=== PATIENT | female | born 1950 | race Caucasian/White ===

== ENCOUNTER 2019-05-02 16:00 | Outpatient (RCR) | payer OTHER, SELFPAY ==
--- NOTE | 2019-02-14 16:00 | PT.OPPOC ---
Current Diagnoses Stress incontinence (female) (male) (02/21/19) Urge incontinence (02/21/19) Visit Care Team Role Provider Type Abimael Shahid MD Primary Care Provider Non-Staff Specialty: Medical Address: [facility] [address], [place], [address] Email: Arjun Herrera MD Attending Provider Physician Specialty: PHYSICIAN REPRESENTATIVE Address: [address] [place] [address] [address], [place], [address] Email: [email or web address] Plan Of Care PT-OP-T Assessment and Plan Start: 02/14/19 12:59 Freq: Status: Active Protocol: Document 02/14/19 15:33 [facility] (Rec: 02/19/19 17:14 [facility] [email or web address]) Physical Therapy Assessment Rehab Potential Rehabilitation Potential Excellent Evaluation Complexity Number of Personal Factors/Comorbidities 0 Number of Body Systems Impaired 1-2 Clinical Presentation at Evaluation Stable Impairments Impairments Activity Tolerance,Strength, Tone Other Impairments urinary urge and stress incontinence limiting recreational activites and activites that require exertion Goals Four Impairment urinary leakage throughout the day, having to change her pad 2 xms Interventional Radiology Rn Goal (LTG) Eloise reports a overall reduction in urinary stress and urge incontinence and is down from 2 pads per day to 1 or less. LTG Duration 8 weeks Three Impairment Urinary urgency and frequency of urination Short Term Goal (STG) Eloise is educated in the urge deference technique and bladder retraining to begin calming down the urgency to void so frequently STG Duration 5 weeks Care Home Goal (LTG) Eloise is able to change her voiding habits from voiding every hour or more to every 2 hours during the day LTG Duration 8 weeks Two Impairment Decreased endurance of the pelvic floor muscles < 5 second hold Short Term Goal (STG) Eloise demonstrates improve pelvic floor endurance and is able to sustain a pelvic floor contraction x 10 seconds in supine STG Duration 4 weeks Interventional Radiology Rn Goal (LTG) Eloise is able to sustain a pelvic floor contraction in standing x 10 seconds One Impairment pelvic floor weakness with MMT 2/5 anterior and lateral awad,3/5 posterior Short Term Goal (STG) Eloise is able to demonstrated improved recruitment of her pelvic floor and she is able to feel a anterior pelvic floor contraction. STG Duration 4 weeks Care Home Goal (LTG) Improve overall pelvic floor strength to 3/5 or better on MMT to provide improved support for the pelvic organs and urethra. Assessment Summary Assessment Eloise presents to physical therapy today with signs and symptoms of both urinary stress and urge incontinence that has progressed over the past 5 years. She is wearing a pessary but still is noting pelvic pressure and heaviness. When reviewing her dietary irritants she does intake a good amount of caffeine during the day including 3 cups of coffee in the am. This may be contributing to her urgency. She reports voiding at least every hour and at times more often than that. She leaks many times per day and is going through 2 maxi pads per day. With examination she test 2/5 for MMT of the anterior and lateral awad of the levator ani and 3/5 MMT for the posterior wall. She has very limited pelvic floor endurance. She also presents with weakness of the Transverse abdominal musculature and hips. Eloise is a good candidate for PT. Treatment will include bladder retraining, pelvic floor neuro facilitation, endurance training, avoiding bladder irritants, and core strengthening exercises. Physical Therapy Plan Frequency and Duration Frequency of Treatment 1x/Week Duration of Treatment 8 Plan of Care Start Date 02/14/19 Plan of Care End Date 04/11/19 Therapeutic Interventions Therapeutic Interventions Home Exercise Program, Neuromuscular Re-education, Patient/Caregiver Education, Self-Care/Home Management, Therapeutic Exercises Next Visit Focus/Plan Next Note Type Treatment Note Next Visit Plan EMG biofeedback for pelvic floor neuro re-ed, begin urge deference technique Plan of Care Dates Plan of Care Start Date 02/14/19 Plan of Care End Date 04/11/19
--- NOTE | 2019-02-14 17:15 | PT.OIE ---
Current Diagnoses Stress incontinence (female) (male) (02/14/19) Urge incontinence (02/14/19) Past Medical History (Last Updated 01/01/19 @ 10:30 by Arjun Herrera MD) Stress incontinence due to pelvic organ prolapse (Acute) Urge incontinence (Acute) Visit Care Team Role Provider Type Abimael Shahid MD Primary Care Provider Non-Staff Specialty: Medical Address: [address] [place], [place] [address], [address] Email: Arjun Herrera MD Attending Provider Physician Specialty: MENTAL TELEPATHIST Address: [address] [place] [address] [address], [place], [address] Email: [email or web address] Physical Therapy Initial Evaluation PT-OP-A Visit Information Start: 02/14/19 12:59 Freq: Status: Active Protocol: Document 02/14/19 15:22 [facility] (Rec: 02/14/19 15:35 [facility] [id number]) Out-Patient Physical Therapy Visit Information Visit Information Visit Type Initial Evaluation Visit Start Time 15:15 Visit Stop Time 16:00 Total Visit Minutes 45 Visit Number 1 Evaluation Information Evaluation Date 02/14/19 PT-OP-B Current Condition Start: 02/14/19 12:59 Freq: Status: Active Protocol: Document 02/14/19 15:22 [facility] (Rec: 02/14/19 15:35 [facility] [id number]) Current Condition History of Current Condition Onset Date many years ago Current Complaints stress and urge incontinence History of Current Condition Eloise Celestin) reports that for quite a few years she has been experiencing leaking with cough and sneeze. Approximately 5 years ago symptoms began to get worse. A few years ago she got a pessary due to increased pressure and no control. She feels like this helped with pressure and heavyness however she continues to experience leakage. Leaking occurs with coughing and sneezing or any exertion like walking or house work or gardening. Sometimes she will have the feeling she needs to go but she wont be able to void. Eloise has a past medical history of 2 vaginal deliveries, 1 c- section delivery, type II diabetes, oseopenia, osteoporosis, taking baclofen for myoclonus Treatment Goals Patient/Caregiver Goals Goal include elimitinating both urinary urge and stress incontinence and reducing pelvic pressure and heaviness Prior Functional Status Baseline Function- ADL's Independent Baseline Function- Mobility Independent Baseline Function- Recreation/Hobbies limited with recreational activies due to leakage and pelvic pressure Current Functional Impairments (Reported) Functional Limitations- Recreation/ limited with activities that Hobbies include exercise and gardening that induce leaking PT-OP-I Pelvic Floor Start: 02/14/19 12:59 Freq: Status: Active Protocol: Document 02/14/19 15:33 [facility] (Rec: 02/19/19 17:14 [facility] [email or web address]) Pelvic Floor Assessment Urine Pelvic Floor Surgery No Urinary Symptoms Urge Sensation,Prolapse Other Urinary Symptoms urinary frequency Leakage Size Medium Leakage Cause Exercise,Lifting,Sneeze,Urge Leaks Per Day many times per day Voiding Frequency every hour Nocturia 1 Pads Used In 24 Hours 2 Urine Pad Type Maxi Pad Pelvic Clock Pelvic Clock 12-3 Atrophy Pelvic Clock 3-6 Guarding Pelvic Clock 6-9 Guarding Pelvic Clock Other guarding on B lateral awad of the levator ani SEMG (uV) 10 Second Contraction 4.9 Recruitment Pattern Poor/Slow Relaxation Fair Holding Poor/Slow Stability of Hold Poor/Slow SEMG Stability of Rest Good Contraction Ability Voluntary Contraction Weak Voluntary Relaxation Weak Manual Muscle Testing Left 2 Manual Muscle Testing Right 2 Manual Muscle Testing Anterior 2 Manual Muscle Testing Posterior 3 Muscle Endurance (Seconds) 5 PT-OP-Q Treatments Start: 02/14/19 12:59 Freq: Status: Active Protocol: Document 02/14/19 15:33 [facility] (Rec: 02/19/19 17:14 [facility] [email or web address]) Neuro Re-Education Treatment Other Activities 1 Details pelvic floor long holds with EMG biofeedback Reps/Duration 10 reps Comments 10 second holds x 10 second relaxation PT-OP-T Assessment and Plan Start: 02/14/19 12:59 Freq: Status: Active Protocol: Document 02/14/19 15:33 [facility] (Rec: 02/19/19 17:14 [facility] [email or web address]) Physical Therapy Assessment Rehab Potential Rehabilitation Potential Excellent Evaluation Complexity Number of Personal Factors/Comorbidities 0 Number of Body Systems Impaired 1-2 Clinical Presentation at Evaluation Stable Impairments Impairments Activity Tolerance,Strength, Tone Other Impairments urinary urge and stress incontinence limiting recreational activities and activities that require exertion Goals Four Impairment urinary leakage throughout the day, having to change her pad 2 xms Mcfp Goal (LTG) Eloise reports a overall reduction in urinary stress and urge incontinence and is down from 2 pads per day to 1 or less. LTG Duration 8 weeks Three Impairment Urinary urgency and frequency of urination Short Term Goal (STG) Eloise is educated in the urge deference technique and bladder retraining to begin calming down the urgency to void so frequently STG Duration 5 weeks Channel Supervisor Goal (LTG) Eloise is able to change her voiding habits from voiding every hour or more to every 2 hours during the day LTG Duration 8 weeks Two Impairment Decreased endurance of the pelvic floor muscles < 5 second hold Short Term Goal (STG) Eloise demonstrates improve pelvic floor endurance and is able to sustain a pelvic floor contraction x 10 seconds in supine STG Duration 4 weeks Mcfp Goal (LTG) Eloise is able to sustain a pelvic floor contraction in standing x 10 seconds One Impairment pelvic floor weakness with MMT 2/5 anterior and lateral awad,3/5 posterior Short Term Goal (STG) Eloise is able to demonstrated improved recruitment of her pelvic floor and she is able to feel a anterior pelvic floor contraction. STG Duration 4 weeks Mcfp Goal (LTG) Improve overall pelvic floor strength to 3/5 or better on MMT to provide improved support for the pelvic organs and urethra. Assessment Summary Assessment Eloise presents to physical therapy today with signs and symptoms of both urinary stress and urge incontinence that has progressed over the past 5 years. She is wearing a pessary but still is noting pelvic pressure and heaviness. When reviewing her dietary irritants she does intake a good amount of caffeine during the day including 3 cups of coffee in the am. This may be contributing to her urgency. She reports voiding at least every hour and at times more often than that. She leaks many times per day and is going through 2 maxi pads per day. With examination she test 2/5 for MMT of the anterior and lateral awad of the levator ani and 3/5 MMT for the posterior wall. She has very limited pelvic floor endurance. She also presents with weakness of the Transverse abdominal musculature and hips. Eloise is a good candidate for PT. Treatment will include bladder retraining, pelvic floor neuro facilitation, endurance training, avoiding bladder irritants, and core strengthening exercises. Physical Therapy Plan Frequency and Duration Frequency of Treatment 1x/Week Duration of Treatment 8 Plan of Care Start Date 02/14/19 Plan of Care End Date 04/11/19 Therapeutic Interventions Therapeutic Interventions Home Exercise Program, Neuromuscular Re-education, Patient/Caregiver Education, Self-Care/Home Management, Therapeutic Exercises Next Visit Focus/Plan Next Note Type Treatment Note Next Visit Plan EMG biofeedback for pelvic floor neuro re-ed, begin urge deference technique
--- NOTE | 2019-02-21 11:36 | PT.OTN ---
Current Diagnoses Stress incontinence (female) (male) (02/21/19) Urge incontinence (02/21/19) Physical Therapy Treatment Note PT-OP-A Visit Information Start: 02/14/19 12:59 Freq: Status: Active Protocol: Document 02/21/19 11:31 [facility] (Rec: 02/21/19 11:34 [facility] [email or web address]) Out-Patient Physical Therapy Visit Information Visit Information Visit Type Treatment Note Visit Start Time 09:00 Visit Stop Time 09:45 Total Visit Minutes 45 Visit Number 2 PT-OP-B Current Condition Start: 02/14/19 12:59 Freq: Status: Active Protocol: Document 02/14/19 15:22 [facility] (Rec: 02/14/19 15:35 [facility] [id number]) Current Condition History of Current Condition Onset Date many years ago Current Complaints stress and urge incontinence History of Current Condition Eloise Celestin) reports that for quite a few years she has been experiencing leaking with cough and sneeze. Approximately 5 years ago symptoms began to get worse. A few years ago she got a pessary due to increased pressure and no control. She feels like this helped with pressure and heavyness however she continues to experience leakage. Leaking occurs with coughing and sneezing or any exertion like walking or house work or gardening. Sometimes she will have the feeling she needs to go but she wont be able to void. Eloise has a past medical history of 2 vaginal deliveries, 1 c- section delivery, type II diabetes, oseopenia, osteoporosis, taking baclofen for myoclonus Treatment Goals Patient/Caregiver Goals Goal include elimitinating both urinary urge and stress incontinence and reducing pelvic pressure and heaviness Prior Functional Status Baseline Function- ADL's Independent Baseline Function- Mobility Independent Baseline Function- Recreation/Hobbies limited with recreational activies due to leakage and pelvic pressure Current Functional Impairments (Reported) Functional Limitations- Recreation/ limited with activities that Hobbies include exercise and gardening that induce leaking PT-OP-C Subjective Start: 02/14/19 12:59 Freq: Status: Active Protocol: Document 02/21/19 11:31 [facility] (Rec: 02/21/19 11:34 [facility] [email or web address]) OP-PT Subjective Patient Comments Patient Comments pt notes she has been working on her exercises but it has been difficult for her to find her pelvic floor PT-OP-I Pelvic Floor Start: 02/14/19 12:59 Freq: Status: Active Protocol: Document 02/14/19 15:33 [facility] (Rec: 02/19/19 17:14 [facility] [email or web address]) Pelvic Floor Assessment Urine Pelvic Floor Surgery No Urinary Symptoms Urge Sensation,Prolapse Other Urinary Symptoms urinary frequency Leakage Size Medium Leakage Cause Exercise,Lifting,Sneeze,Urge Leaks Per Day many times per day Voiding Frequency every hour Nocturia 1 Pads Used In 24 Hours 2 Urine Pad Type Maxi Pad Pelvic Clock Pelvic Clock 12-3 Atrophy Pelvic Clock 3-6 Guarding Pelvic Clock 6-9 Guarding Pelvic Clock Other guarding on B lateral awad of the levator ani SEMG (uV) 10 Second Contraction 4.9 Recruitment Pattern Poor/Slow Relaxation Fair Holding Poor/Slow Stability of Hold Poor/Slow SEMG Stability of Rest Good Contraction Ability Voluntary Contraction Weak Voluntary Relaxation Weak Manual Muscle Testing Left 2 Manual Muscle Testing Right 2 Manual Muscle Testing Anterior 2 Manual Muscle Testing Posterior 3 Muscle Endurance (Seconds) 5 PT-OP-Q Treatments Start: 02/14/19 12:59 Freq: Status: Active Protocol: Document 02/21/19 11:34 [facility] (Rec: 02/21/19 11:36 [facility] [email or web address]) Therapeutic Exercises Supine Exercises 2 Supine Exercise Name isometric ball squeeze with pelvic floor contraction Side bilateral Reps/Minutes x 10 1 Supine Exercise Name diaphragmatic breathing Side bilateral Comments x 5 minutes , inhale x 4 counts exhale x 4 counts Other Exercises 2 Other Exercise Name sidelying TA 1 Other Exercise Name quadruped TA facilitation Reps/Minutes 10 reps x 10 second hold Neuro Re-Education Treatment Other Activities 2 Details pelvic floor quick contractions Comments 10 reps x 2 sec on/off 1 Details pelvic floor long holds with EMG biofeedback Reps/Duration 10 reps Comments 10 second holds x 10 second relaxation PT-OP-T Assessment and Plan Start: 02/14/19 12:59 Freq: Status: Active Protocol: Document 02/21/19 11:31 [facility] (Rec: 02/21/19 11:34 [facility] [email or web address]) Physical Therapy Assessment Assessment Summary Assessment added in urge deferenece techniaue today, worked on diaphragmatic breathing which is very difficult for Eloise to do. Worked on transverse abdominal facilitation in quadraped, sidelying and supine, added in quick contractions to help with urge deference technique. Physical Therapy Plan Frequency and Duration Frequency of Treatment 1x/Week Duration of Treatment 8 Plan of Care Start Date 02/14/19 Plan of Care End Date 04/11/19 Next Visit Focus/Plan Next Note Type Treatment Note Next Visit Plan review all exercises next visit as it will be 2 weeks inbetween visits.
--- NOTE | 2019-03-21 14:57 | PT.OTN ---
Current Diagnoses Stress incontinence (female) (male) (03/21/19) Urge incontinence (03/21/19) Physical Therapy Treatment Note PT-OP-A Visit Information Start: 02/14/19 12:59 Freq: Status: Active Protocol: Document 03/21/19 14:51 [facility] (Rec: 03/21/19 14:57 [facility] [email or web address]) Out-Patient Physical Therapy Visit Information Visit Information Visit Type Treatment Note Visit Start Time 13:45 Visit Stop Time 14:30 Total Visit Minutes 45 Visit Number 3 PT-OP-B Current Condition Start: 02/14/19 12:59 Freq: Status: Active Protocol: Document 02/14/19 15:22 [facility] (Rec: 02/14/19 15:35 [facility] [id number]) Current Condition History of Current Condition Onset Date many years ago Current Complaints stress and urge incontinence History of Current Condition Eloise Celestin) reports that for quite a few years she has been experiencing leaking with cough and sneeze. Approximately 5 years ago symptoms began to get worse. A few years ago she got a pessary due to increased pressure and no control. She feels like this helped with pressure and heavyness however she continues to experience leakage. Leaking occurs with coughing and sneezing or any exertion like walking or house work or gardening. Sometimes she will have the feeling she needs to go but she wont be able to void. Eloise has a past medical history of 2 vaginal deliveries, 1 c- section delivery, type II diabetes, oseopenia, osteoporosis, taking baclofen for myoclonus Treatment Goals Patient/Caregiver Goals Goal include elimitinating both urinary urge and stress incontinence and reducing pelvic pressure and heaviness Prior Functional Status Baseline Function- ADL's Independent Baseline Function- Mobility Independent Baseline Function- Recreation/Hobbies limited with recreational activies due to leakage and pelvic pressure Current Functional Impairments (Reported) Functional Limitations- Recreation/ limited with activities that Hobbies include exercise and gardening that induce leaking PT-OP-C Subjective Start: 02/14/19 12:59 Freq: Status: Active Protocol: Document 03/21/19 13:52 [facility] (Rec: 03/21/19 13:54 [facility] [id number]) OP-PT Subjective Patient Comments Patient Comments pt reports she hasn't been very consistent with her exercises. Patient Reported Progress Same PT-OP-I Pelvic Floor Start: 02/14/19 12:59 Freq: Status: Active Protocol: Document 02/14/19 15:33 [facility] (Rec: 02/19/19 17:14 [facility] [email or web address]) Pelvic Floor Assessment Urine Pelvic Floor Surgery No Urinary Symptoms Urge Sensation,Prolapse Other Urinary Symptoms urinary frequency Leakage Size Medium Leakage Cause Exercise,Lifting,Sneeze,Urge Leaks Per Day many times per day Voiding Frequency every hour Nocturia 1 Pads Used In 24 Hours 2 Urine Pad Type Maxi Pad Pelvic Clock Pelvic Clock 12-3 Atrophy Pelvic Clock 3-6 Guarding Pelvic Clock 6-9 Guarding Pelvic Clock Other guarding on B lateral awad of the levator ani SEMG (uV) 10 Second Contraction 4.9 Recruitment Pattern Poor/Slow Relaxation Fair Holding Poor/Slow Stability of Hold Poor/Slow SEMG Stability of Rest Good Contraction Ability Voluntary Contraction Weak Voluntary Relaxation Weak Manual Muscle Testing Left 2 Manual Muscle Testing Right 2 Manual Muscle Testing Anterior 2 Manual Muscle Testing Posterior 3 Muscle Endurance (Seconds) 5 PT-OP-Q Treatments Start: 02/14/19 12:59 Freq: Status: Active Protocol: Document 03/21/19 14:51 [facility] (Rec: 03/21/19 14:57 [facility] [email or web address]) Therapeutic Exercises Supine Exercises 5 Supine Exercise Name quick flicks Reps/Minutes 2 x 10 reps 4 Supine Exercise Name pelvic floor long holds Reps/Minutes 2 x 10 reps 3 Supine Exercise Name roll outs with theraband Reps/Minutes 2 x 10 reps 2 Supine Exercise Name isometric ball squeeze with pelvic floor contraction Side bilateral Reps/Minutes x 10 1 Supine Exercise Name diaphragmatic breathing Side bilateral Comments x 5 minutes , inhale x 4 counts exhale x 4 counts Self-Care/Home Management Treatment Education Patient Education Home Exercise Program Other Education urge deference technique and bladder retraining taught to Erika today PT-OP-T Assessment and Plan Start: 02/14/19 12:59 Freq: Status: Active Protocol: Document 03/21/19 14:51 [facility] (Rec: 03/21/19 14:57 [facility] [email or web address]) Physical Therapy Assessment Assessment Summary Assessment endurance still really difficult but holding at a low level so I increased her to 10 second hold time for home. Added in roll outs and quick contractions to her home program Physical Therapy Plan Frequency and Duration Frequency of Treatment 1x/Week Duration of Treatment 8 Plan of Care Start Date 02/14/19 Plan of Care End Date 04/11/19 Next Visit Focus/Plan Next Note Type Treatment Note Next Visit Plan review all exercises next visit as it will be 2 weeks inbetween visits.
--- NOTE | 2019-04-11 17:27 | PT.OTN ---
Current Diagnoses Stress incontinence (female) (male) (04/11/19) Urge incontinence (04/11/19) Physical Therapy Treatment Note PT-OP-A Visit Information Start: 02/14/19 12:59 Freq: Status: Active Protocol: Document 04/11/19 17:09 [facility] (Rec: 04/11/19 17:26 COUNT INCLUDES THE [facility] [id number]) Out-Patient Physical Therapy Visit Information Visit Information Visit Type Treatment Note Visit Start Time 09:45 Visit Stop Time 10:30 Total Visit Minutes 45 Visit Number 4 PT-OP-B Current Condition Start: 02/14/19 12:59 Freq: Status: Active Protocol: Document 02/14/19 15:22 [facility] (Rec: 02/14/19 15:35 [facility] [id number]) Current Condition History of Current Condition Onset Date many years ago Current Complaints stress and urge incontinence History of Current Condition Eloise Celestin) reports that for quite a few years she has been experiencing leaking with cough and sneeze. Approximately 5 years ago symptoms began to get worse. A few years ago she got a pessary due to increased pressure and no control. She feels like this helped with pressure and heavyness however she continues to experience leakage. Leaking occurs with coughing and sneezing or any exertion like walking or house work or gardening. Sometimes she will have the feeling she needs to go but she wont be able to void. Eloise has a past medical history of 2 vaginal deliveries, 1 c- section delivery, type II diabetes, oseopenia, osteoporosis, taking baclofen for myoclonus Treatment Goals Patient/Caregiver Goals Goal include elimitinating both urinary urge and stress incontinence and reducing pelvic pressure and heaviness Prior Functional Status Baseline Function- ADL's Independent Baseline Function- Mobility Independent Baseline Function- Recreation/Hobbies limited with recreational activies due to leakage and pelvic pressure Current Functional Impairments (Reported) Functional Limitations- Recreation/ limited with activities that Hobbies include exercise and gardening that induce leaking PT-OP-C Subjective Start: 02/14/19 12:59 Freq: Status: Active Protocol: Document 04/11/19 17:09 [facility] (Rec: 04/11/19 17:26 COUNT INCLUDES THE [facility] [email or web address]) OP-PT Subjective Patient Comments Patient Comments pt states she is working at being more consistent with her exercises. She feels like she is getting little more control now. PT-OP-I Pelvic Floor Start: 02/14/19 12:59 Freq: Status: Active Protocol: Document 02/14/19 15:33 [facility] (Rec: 02/19/19 17:14 [facility] INCLUDES THE [facility] [email or web address]) Pelvic Floor Assessment Urine Pelvic Floor Surgery No Urinary Symptoms Urge Sensation,Prolapse Other Urinary Symptoms urinary frequency Leakage Size Medium Leakage Cause Exercise,Lifting,Sneeze,Urge Leaks Per Day many times per day Voiding Frequency every hour Nocturia 1 Pads Used In 24 Hours 2 Urine Pad Type Maxi Pad Pelvic Clock Pelvic Clock 12-3 Atrophy Pelvic Clock 3-6 Guarding Pelvic Clock 6-9 Guarding Pelvic Clock Other guarding on B lateral awad of the levator ani SEMG (uV) 10 Second Contraction 4.9 Recruitment Pattern Poor/Slow Relaxation Fair Holding Poor/Slow Stability of Hold Poor/Slow SEMG Stability of Rest Good Contraction Ability Voluntary Contraction Weak Voluntary Relaxation Weak Manual Muscle Testing Left 2 Manual Muscle Testing Right 2 Manual Muscle Testing Anterior 2 Manual Muscle Testing Posterior 3 Muscle Endurance (Seconds) 5 PT-OP-Q Treatments Start: 02/14/19 12:59 Freq: Status: Active Protocol: Document 04/11/19 17:09 [facility] INCLUDES THE [facility] (Rec: 04/11/19 17:26 COUNT INCLUDES THE [facility] [email or web address]) Therapeutic Exercises Supine Exercises 5 Supine Exercise Name quick flicks Reps/Minutes 2 x 10 reps 4 Supine Exercise Name pelvic floor long holds Reps/Minutes 2 x 10 reps 3 Supine Exercise Name roll outs with theraband Reps/Minutes 2 x 10 reps 2 Supine Exercise Name isometric ball squeeze with pelvic floor contraction Side bilateral Reps/Minutes x 10 1 Supine Exercise Name diaphragmatic breathing Side bilateral Comments x 5 minutes , inhale x 4 counts exhale x 4 counts Other Exercises sit-stand Other Exercise Name sit-stand with TA facilitation and pelvic floor facilitation Reps/Minutes 10 reps PT-OP-T Assessment and Plan Start: 02/14/19 12:59 Freq: Status: Active Protocol: Document 04/11/19 17:09 [facility] INCLUDES THE [facility] (Rec: 04/11/19 17:26 COUNT INCLUDES THE [facility] [email or web address]) Physical Therapy Assessment Goals Four Impairment urinary leakage throughout the day, having to change her pad 2 xms Shelter Goal (LTG) Eloise reports a overall reduction in urinary stress and urge incontinence and is down from 2 pads per day to 1 or less. GOOD PROGRESS LTG Duration 8 weeks Three Impairment Urinary urgency and frequency of urination Short Term Goal (STG) Eloise is educated in the urge deference technique and bladder retraining to begin calming down the urgency to void so frequently GOAL MET STG Duration 5 weeks Shelter Goal (LTG) Eloise is able to change her voiding habits from voiding every hour or more to every 2 hours during the day GOOD PROGRESS LTG Duration 8 weeks Two Impairment Decreased endurance of the pelvic floor muscles < 5 second hold Short Term Goal (STG) Eloise demonstrates improve pelvic floor endurance and is able to sustain a pelvic floor contraction x 10 seconds in supine GOAL NOT YET MET STG Duration 4 weeks Mutuel Department Manager Goal (LTG) Eloise is able to sustain a pelvic floor contraction in standing x 10 seconds One Impairment pelvic floor weakness with MMT 2/5 anterior and lateral awad,3/5 posterior Short Term Goal (STG) Eloise is able to demonstrated improved recruitment of her pelvic floor and she is able to feel a anterior pelvic floor contraction. GOOD PROGRESS STG Duration 4 weeks [employer] Department Manager Goal (LTG) Improve overall pelvic floor strength to 3/5 or better on MMT to provide improved support for the pelvic organs and urethra. Assessment Summary Assessment Eloise Diehl) Has been seen for a total of 4 visits in PT. She is reporting decreased waking up at night to void, she is feeling her pelvic floor muscles better now and is noting a small decrease in her leaking. She was doing better with pelvic floor isolation today and not using her gluteals for substitution. Endurance of the pelvic floor muscles is still a challange for her and I am working with her hip muscle strengthening as well to help improve endurance. Physical Therapy Plan Frequency and Duration Frequency of Treatment 1x/Week Duration of Treatment 8 Plan of Care Start Date 04/11/19 Plan of Care End Date 06/06/19 Therapeutic Interventions Therapeutic Interventions Home Exercise Program, Neuromuscular Re-education, Patient/Caregiver Education, Self-Care/Home Management, Therapeutic Exercises Next Visit Focus/Plan Next Note Type Treatment Note Next Visit Plan work on transverse abdominal recruitement in quadruped and with sit-stand, continue to progress endurance with pelvic cheyanne strengtheing
--- NOTE | 2019-04-11 17:27 | PT.OPPOC ---
Physical, Occupational & Speech Therapy At [facility] Current Diagnoses Stress incontinence (female) (male) (04/11/19) Urge incontinence (04/11/19) Visit Care Team Role Provider Type Abimael Shahid MD Primary Care Provider Non-Staff Specialty: Medical Address: [facility] [address], [place], [address] Email: Arjun Herrera MD Attending Provider Physician Specialty: DENTAL TECHNOLOGY ADVISOR Address: [address] [place] [address] [address], [place], [address] Email: [email or web address] Plan Of Care PT-OP-T Assessment and Plan Start: 02/14/19 12:59 Freq: Status: Active Protocol: Document 04/11/19 17:09 [facility] (Rec: 04/11/19 17:26 [facility] [email or web address]) Physical Therapy Assessment Goals Four Impairment urinary leakage throughout the day, having to change her pad 2 xms Desktop Specialist Goal (LTG) Eloise reports a overall reduction in urinary stress and urge incontinence and is down from 2 pads per day to 1 or less. GOOD PROGRESS LTG Duration 8 weeks Three Impairment Urinary urgency and frequency of urination Short Term Goal (STG) Eloise is educated in the urge deference technique and bladder retraining to begin calming down the urgency to void so frequently GOAL MET STG Duration 5 weeks Desktop Specialist Goal (LTG) Eloise is able to change her voiding habits from voiding every hour or more to every 2 hours during the day GOOD PROGRESS LTG Duration 8 weeks Two Impairment Decreased endurance of the pelvic floor muscles < 5 second hold Short Term Goal (STG) Eloise demonstrates improve pelvic floor endurance and is able to sustain a pelvic floor contraction x 10 seconds in supine GOAL NOT YET MET STG Duration 4 weeks Fdc Goal (LTG) Eloise is able to sustain a pelvic floor contraction in standing x 10 seconds One Impairment pelvic floor weakness with MMT 2/5 anterior and lateral awad,3/5 posterior Short Term Goal (STG) Eloise is able to demonstrated improved recruitment of her pelvic floor and she is able to feel a anterior pelvic floor contraction. GOOD PROGRESS STG Duration 4 weeks [facility]dc Goal (LTG) Improve overall pelvic floor strength to 3/5 or better on MMT to provide improved support for the pelvic organs and urethra. Assessment Summary Assessment Eloise Diehl) Has been seen for a total of 4 visits in PT. She is reporting decreased waking up at night to void, she is feeling her pelvic floor muscles better now and is noting a small decrease in her leaking. She was doing better with pelvic floor isolation today and not using her gluteals for substitution. Endurance of the pelvic floor muscles is still a challenge for her and I am working with her hip muscle strengthening as well to help improve endurance. She would benefit from continued PT Physical Therapy Plan Frequency and Duration Frequency of Treatment 1x/Week Duration of Treatment 8 Plan of Care Start Date 04/11/19 Plan of Care End Date 06/06/19 Therapeutic Interventions Therapeutic Interventions Home Exercise Program, Neuromuscular Re-education, Patient/Caregiver Education, Self-Care/Home Management, Therapeutic Exercises Next Visit Focus/Plan Next Note Type Treatment Note Next Visit Plan work on transverse abdominal recruitment in quadruped and with sit-stand, continue to progress endurance with pelvic floor strengthening Plan of Care Dates Plan of Care Start Date 04/11/19 Plan of Care End Date 06/06/19 Electronically Signed by: Trang Posada, PT 04/11/19 2812 Please Sign and Return: I have reviewed this Plan of Care and certify that the skilled therapy services above are required to meet the patient?s needs. Physician Signature Date Printed Name and Credentials Clinical Instructor Signature Printed Name and Credentials
--- NOTE | 2019-04-25 16:58 | PT.OTN ---
Current Diagnoses Stress incontinence (female) (male) (04/25/19) Urge incontinence (04/25/19) Physical Therapy Treatment Note PT-OP-A Visit Information Start: 02/14/19 12:59 Freq: Status: Active Protocol: Document 04/25/19 15:56 [facility] (Rec: 04/25/19 16:13 [facility] [email or web address]) Out-Patient Physical Therapy Visit Information Visit Information Visit Type Treatment Note Visit Start Time 16:00 Visit Stop Time 16:45 Total Visit Minutes 45 Visit Number 5 PT-OP-B Current Condition Start: 02/14/19 12:59 Freq: Status: Active Protocol: Document 02/14/19 15:22 [facility] (Rec: 02/14/19 15:35 [facility] [id number]) Current Condition History of Current Condition Onset Date many years ago Current Complaints stress and urge incontinence History of Current Condition Eloise Celestin) reports that for quite a few years she has been experiencing leaking with cough and sneeze. Approximately 5 years ago symptoms began to get worse. A few years ago she got a pessary due to increased pressure and no control. She feels like this helped with pressure and heavyness however she continues to experience leakage. Leaking occurs with coughing and sneezing or any exertion like walking or house work or gardening. Sometimes she will have the feeling she needs to go but she wont be able to void. Eloise has a past medical history of 2 vaginal deliveries, 1 c- section delivery, type II diabetes, oseopenia, osteoporosis, taking baclofen for myoclonus Treatment Goals Patient/Caregiver Goals Goal include elimitinating both urinary urge and stress incontinence and reducing pelvic pressure and heaviness Prior Functional Status Baseline Function- ADL's Independent Baseline Function- Mobility Independent Baseline Function- Recreation/Hobbies limited with recreational activies due to leakage and pelvic pressure Current Functional Impairments (Reported) Functional Limitations- Recreation/ limited with activities that Hobbies include exercise and gardening that induce leaking PT-OP-C Subjective Start: 02/14/19 12:59 Freq: Status: Active Protocol: Document 04/25/19 15:56 [facility] (Rec: 04/25/19 16:10 AMH [id number]) OP-PT Subjective Patient Comments Patient Comments Pt has been more consistant about her exercises, she hasn' t had nearly as much leakage. USes 2 pads per day Patient Reported Progress Improving PT-OP-I Pelvic Floor Start: 02/14/19 12:59 Freq: Status: Active Protocol: Document 02/14/19 15:33 [facility] (Rec: 02/19/19 17:14 [facility] [email or web address]) Pelvic Floor Assessment Urine Pelvic Floor Surgery No Urinary Symptoms Urge Sensation,Prolapse Other Urinary Symptoms urinary frequency Leakage Size Medium Leakage Cause Exercise,Lifting,Sneeze,Urge Leaks Per Day many times per day Voiding Frequency every hour Nocturia 1 Pads Used In 24 Hours 2 Urine Pad Type Maxi Pad Pelvic Clock Pelvic Clock 12-3 Atrophy Pelvic Clock 3-6 Guarding Pelvic Clock 6-9 Guarding Pelvic Clock Other guarding on B lateral awad of the levator ani SEMG (uV) 10 Second Contraction 4.9 Recruitment Pattern Poor/Slow Relaxation Fair Holding Poor/Slow Stability of Hold Poor/Slow SEMG Stability of Rest Good Contraction Ability Voluntary Contraction Weak Voluntary Relaxation Weak Manual Muscle Testing Left 2 Manual Muscle Testing Right 2 Manual Muscle Testing Anterior 2 Manual Muscle Testing Posterior 3 Muscle Endurance (Seconds) 5 PT-OP-Q Treatments Start: 02/14/19 12:59 Freq: Status: Active Protocol: Document 04/25/19 16:13 [facility] (Rec: 04/25/19 16:53 [facility] [email or web address]) Therapeutic Exercises Supine Exercises 6 Supine Exercise Name templates for coordination and eccentric control Reps/Minutes 5 min 5 Supine Exercise Name quick flicks Reps/Minutes 2 x 10 reps 4 Supine Exercise Name pelvic floor long holds Reps/Minutes 2 x 10 reps 3 Supine Exercise Name roll outs with theraband Reps/Minutes 2 x 10 reps 2 Supine Exercise Name isometric ball squeeze with pelvic floor contraction Side bilateral Reps/Minutes x 10 1 Supine Exercise Name diaphragmatic breathing Side bilateral Comments x 5 minutes , inhale x 4 counts exhale x 4 counts Other Exercises sit-stand Other Exercise Name sit-stand with TA facilitation and pelvic floor facilitation Reps/Minutes 10 reps 2 Other Exercise Name sidelying TA 1 Other Exercise Name quadruped TA facilitation Reps/Minutes 10 reps x 10 second hold PT-OP-T Assessment and Plan Start: 02/14/19 12:59 Freq: Status: Active Protocol: Document 04/25/19 16:53 [facility] (Rec: 04/25/19 16:56 [facility] [email or web address]) Physical Therapy Assessment Assessment Summary Assessment Max contraction has improved from 11.2 uv to 23.3 uv good increase in pelvic floor contraction intensity. Average has improved from 4.9 uv to 7.4 uv. Erika still has difficulty with full endurance of her pelvic floor but her symptoms have improved and she is doing well with her exercises. She has one visit left in PT and unless she feels she wants to do a recheck in one month then we will discontinue PT after next visit Physical Therapy Plan Frequency and Duration Frequency of Treatment 1x/Week Duration of Treatment 8 Plan of Care Start Date 04/11/19 Plan of Care End Date 06/06/19 Next Visit Focus/Plan Next Note Type Treatment Note Next Visit Plan Review TA stabilization in quadruped, review all established ther ex.
--- NOTE | 2019-05-02 17:23 | PT.OTN ---
Current Diagnoses Stress incontinence (female) (male) (05/02/19) Urge incontinence (05/02/19) Physical Therapy Treatment Note PT-OP-A Visit Information Start: 02/14/19 12:59 Freq: Status: Active Protocol: Document 05/02/19 17:21 [facility] (Rec: 05/02/19 17:23 [facility] [email or web address]) Out-Patient Physical Therapy Visit Information Visit Information Visit Type Treatment Note Visit Start Time 16:00 Visit Stop Time 16:45 Total Visit Minutes 45 Visit Number 6 PT-OP-B Current Condition Start: 02/14/19 12:59 Freq: Status: Active Protocol: Document 02/14/19 15:22 AM[facility] (Rec: 02/14/19 15:35 AMH [id number]) Current Condition History of Current Condition Onset Date many years ago Current Complaints stress and urge incontinence History of Current Condition Eloise Celestin) reports that for quite a few years she has been experiencing leaking with cough and sneeze. Approximately 5 years ago symptoms began to get worse. A few years ago she got a pessary due to increased pressure and no control. She feels like this helped with pressure and heavyness however she continues to experience leakage. Leaking occurs with coughing and sneezing or any exertion like walking or house work or gardening. Sometimes she will have the feeling she needs to go but she wont be able to void. Eloise has a past medical history of 2 vaginal deliveries, 1 c- section delivery, type II diabetes, oseopenia, osteoporosis, taking baclofen for myoclonus Treatment Goals Patient/Caregiver Goals Goal include elimitinating both urinary urge and stress incontinence and reducing pelvic pressure and heaviness Prior Functional Status Baseline Function- ADL's Independent Baseline Function- Mobility Independent Baseline Function- Recreation/Hobbies limited with recreational activies due to leakage and pelvic pressure Current Functional Impairments (Reported) Functional Limitations- Recreation/ limited with activities that Hobbies include exercise and gardening that induce leaking PT-OP-C Subjective Start: 02/14/19 12:59 Freq: Status: Active Protocol: Document 05/02/19 17:21 [facility] (Rec: 05/02/19 17:23 [facility] [email or web address]) OP-PT Subjective Patient Comments Patient Comments pt notes this has been a tiring week. She watched her 3 year old grand daughter in [place] this week. Hasn't done her exercises as much this week PT-OP-I Pelvic Floor Start: 02/14/19 12:59 Freq: Status: Active Protocol: Document 02/14/19 15:33 [facility] (Rec: 02/19/19 17:14 [facility] [email or web address]) Pelvic Floor Assessment Urine Pelvic Floor Surgery No Urinary Symptoms Urge Sensation,Prolapse Other Urinary Symptoms urinary frequency Leakage Size Medium Leakage Cause Exercise,Lifting,Sneeze,Urge Leaks Per Day many times per day Voiding Frequency every hour Nocturia 1 Pads Used In 24 Hours 2 Urine Pad Type Maxi Pad Pelvic Clock Pelvic Clock 12-3 Atrophy Pelvic Clock 3-6 Guarding Pelvic Clock 6-9 Guarding Pelvic Clock Other guarding on B lateral awad of the levator ani SEMG (uV) 10 Second Contraction 4.9 Recruitment Pattern Poor/Slow Relaxation Fair Holding Poor/Slow Stability of Hold Poor/Slow SEMG Stability of Rest Good Contraction Ability Voluntary Contraction Weak Voluntary Relaxation Weak Manual Muscle Testing Left 2 Manual Muscle Testing Right 2 Manual Muscle Testing Anterior 2 Manual Muscle Testing Posterior 3 Muscle Endurance (Seconds) 5 PT-OP-Q Treatments Start: 02/14/19 12:59 Freq: Status: Active Protocol: Document 05/02/19 17:21 [facility] (Rec: 05/02/19 17:23 [facility] [email or web address]) Therapeutic Exercises Supine Exercises 6 Supine Exercise Name templates for coordination and eccentric control Reps/Minutes 5 min 5 Supine Exercise Name quick flicks Reps/Minutes 2 x 10 reps 4 Supine Exercise Name pelvic floor long holds Reps/Minutes 2 x 10 reps 3 Supine Exercise Name roll outs with theraband Reps/Minutes 2 x 10 reps 2 Supine Exercise Name isometric ball squeeze with pelvic floor contraction Side bilateral Reps/Minutes x 10 1 Supine Exercise Name diaphragmatic breathing Side bilateral Comments x 5 minutes , inhale x 4 counts exhale x 4 counts Other Exercises sit-stand Other Exercise Name sit-stand with TA facilitation and pelvic floor facilitation Reps/Minutes 10 reps 2 Other Exercise Name sidelying TA 1 Other Exercise Name quadruped TA facilitation Reps/Minutes 10 reps x 10 second hold PT-OP-T Assessment and Plan Start: 02/14/19 12:59 Freq: Status: Active Protocol: Document 05/02/19 17:21 [facility] (Rec: 05/02/19 17:23 [facility] [email or web address]) Physical Therapy Assessment Assessment Summary Assessment Pt was fatigued today and pelvic floor average was much lower today due to fatigue. Pt will continue to work on the exercises on her own and recheck in 2 weeks Physical Therapy Plan Frequency and Duration Frequency of Treatment 1x/Week Duration of Treatment 8 Plan of Care Start Date 04/11/19 Plan of Care End Date 06/06/19 Therapeutic Interventions Therapeutic Interventions Home Exercise Program, Neuromuscular Re-education, Patient/Caregiver Education, Self-Care/Home Management, Therapeutic Exercises Next Visit Focus/Plan Next Note Type Treatment Note Next Visit Plan Review TA stabilization in quadruped, review all established ther ex.
--- NOTE | 2019-09-23 08:52 | PT.OPDS ---
Current Diagnoses Stress incontinence (female) (male) (05/02/19) Urge incontinence (05/02/19) Visit Care Team Role Provider Type Abimael Shahid MD Primary Care Provider Non-Staff Specialty: Medical Address: [facility] [address], [place], [address] Email: Arjun Herrera MD Attending Provider Physician Specialty: PRENATAL TEACHER Address: [address] [place] [address] [address], [place], [address] Email: [email or web address] Visit Number Visit Number 6 Discharge Summary PT-OP-B Current Condition Start: 02/14/19 12:59 Freq: Status: Active Protocol: Document 02/14/19 15:22 [facility] (Rec: 02/14/19 15:35 [facility] [id number]) Current Condition History of Current Condition Onset Date many years ago Current Complaints stress and urge incontinence History of Current Condition Eloise Celestin) reports that for quite a few years she has been experiencing leaking with cough and sneeze. Approximately 5 years ago symptoms began to get worse. A few years ago she got a pessary due to increased pressure and no control. She feels like this helped with pressure and heavyness however she continues to experience leakage. Leaking occurs with coughing and sneezing or any exertion like walking or house work or gardening. Sometimes she will have the feeling she needs to go but she wont be able to void. Eloise has a past medical history of 2 vaginal deliveries, 1 c- section delivery, type II diabetes, oseopenia, osteoporosis, taking baclofen for myoclonus Treatment Goals Patient/Caregiver Goals Goal include elimitinating both urinary urge and stress incontinence and reducing pelvic pressure and heaviness Prior Functional Status Baseline Function- ADL's Independent Baseline Function- Mobility Independent Baseline Function- Recreation/Hobbies limited with recreational activies due to leakage and pelvic pressure Current Functional Impairments (Reported) Functional Limitations- Recreation/ limited with activities that Hobbies include exercise and gardening that induce leaking PT-OP-C Subjective Start: 02/14/19 12:59 Freq: Status: Active Protocol: Document 05/02/19 17:21 [facility] (Rec: 05/02/19 17:23 [facility] [id number]) OP-PT Subjective Patient Comments Patient Comments pt notes this has been a tiring week. She watched her 3 year old grand daughter in [place] this week. Hasn't done her exercises as much this week PT-OP-I Pelvic Floor Start: 02/14/19 12:59 Freq: Status: Active Protocol: Document 02/14/19 15:33 [facility] (Rec: 02/19/19 17:14 [facility] [id number]) Pelvic Floor Assessment Urine Pelvic Floor Surgery No Urinary Symptoms Urge Sensation,Prolapse Other Urinary Symptoms urinary frequency Leakage Size Medium Leakage Cause Exercise,Lifting,Sneeze,Urge Leaks Per Day many times per day Voiding Frequency every hour Nocturia 1 Pads Used In 24 Hours 2 Urine Pad Type Maxi Pad Pelvic Clock Pelvic Clock 12-3 Atrophy Pelvic Clock 3-6 Guarding Pelvic Clock 6-9 Guarding Pelvic Clock Other guarding on B lateral awad of the levator ani SEMG (uV) 10 Second Contraction 4.9 Recruitment Pattern Poor/Slow Relaxation Fair Holding Poor/Slow Stability of Hold Poor/Slow SEMG Stability of Rest Good Contraction Ability Voluntary Contraction Weak Voluntary Relaxation Weak Manual Muscle Testing Left 2 Manual Muscle Testing Right 2 Manual Muscle Testing Anterior 2 Manual Muscle Testing Posterior 3 Muscle Endurance (Seconds) 5 PT-OP-T Assessment and Plan Start: 02/14/19 12:59 Freq: Status: Active Protocol: Document 09/23/19 08:49 [facility] (Rec: 09/23/19 08:52 [facility] [id number]) Physical Therapy Assessment Assessment Summary Assessment Erika was last seen in PT 05/02. She was feeling like she had made progress overall and her symptoms had been improving. She showed at that time a increase in her average contraction of her pelvic floor from 4.9-7.4 uv Her max contraction is 11.2-23 .3 uv. SHe was still noting endurnace was her greatest challange. Eloise felt comfortable with her exercises as of her last visit and will be discharged to a home exercise program Physical Therapy Plan Discharge Physical Therapy Discharge Reasons No Longer Attending PT
== END 2019-09-24 12:17 ==
LOC: PHYS 16:00
PROVIDERS: PCP Family Medicine
DX: N39.3 Stress incontinence (female) (male) (principal); N39.41 Urge incontinence
CPT/HCPCS: 97110; 97112; 97161; 97535